=== PATIENT | male | born 1935 | race Caucasian/White ===

== ENCOUNTER 2016-10-04 09:39 | Day surgery (SDC) | payer OTHER ==
--- NOTE | 2016-10-03 15:20 | HP ---
DATE OF ADMISSION: 10/04/2016 BRIEF HISTORY: This is an 81-year-old gentleman who was evaluated by his oncologist, and at that time, noted to have a pigmented nevus overlying the right shoulder. He was then subsequently sent to his account support specialist who did a biopsy, and this confirmed a melanoma that is 0.2 mm in depth. Incidentally, the patient just had a full-body scan by a account support specialist, and this was not picked up. Clearly, his oncologist saved his life. PAST MEDICAL HISTORY: Significant for hypertension, hypercholesterolemia. He had a colon tumor and underwent a colon resection in 2012. He had a hernia repair in 2014. ALLERGIES: SULFA. MEDICATIONS: Avapro, Cardizem, Lipitor, and aspirin. SOCIAL HISTORY: He does not smoke. He drinks socially. PHYSICAL EXAMINATION: HEENT: Unremarkable. Nodes: There is no axillary or cervical adenopathy on the right side. Skin: Patient has a biopsy site noted on the right. This was circled with a red marker today by me. The pointed the area out. Lungs: Clear. Heart: Regular rhythm. 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 This is an 81-year-old gentleman who underwent biopsy of a pigmented nevus overlying the right shoulder. Pathology consistent with malignant melanoma that is 0.2 mm in depth. The patient and I had a long conversation regrading pros and cons of getting a slide review in this setting. Patient wants this surgery done right away, and therefore, we will forego the slide review. In our discussion, we have talked about the fact that the slide review can be exactly the same, and therefore, the surgery will be as planned, but assuming the slide review is off by double, therefore, making this lesion a 0.4 mm malignant melanoma, the operation is still essentially the same. Therefore, the patient clearly does not want to wait for the slide review and wants to proceed with surgery. He understands that if the slide review demonstrates no carcinoma, he is better off and still wants to have this removed at his age. The indications, alternatives, and complications discussed. Questions answered. We will plan to obtain written permission the day of surgery. LIZZETTE RANDOLPH M.D. [id number]
[2016-10-03 15:33] VITALS: BMI 25.5
[2016-10-04] MEDS ORDERED: ceFAZolin SODIUM 1 GM VIAL ONE (10:27)
[2016-10-04 10:43] VITALS: TEMP 97.5
[2016-10-04] MEDS ORDERED: LIDOCAINE HCL 1%, 10 MG/ML (20ML VIAL) ONE (11:23)
[2016-10-04] MEDS ORDERED: PROPOFOL 20 ML ONE (11:42)
[2016-10-04] MEDS ORDERED: MIDAZOLAM HCL 2 MG/2 ML SINGLE DOSE VIAL ONE (11:42)
[2016-10-04] MEDS ORDERED: ceFAZolin SODIUM 1 GM VIAL IVPB ONE (11:50)
[2016-10-04] MEDS ORDERED: LIDOCAINE HCL 1%, 10 MG/ML (50 mL VIAL) IJ ONE ×2 (11:53)
[2016-10-04] MEDS ORDERED: hydrALAZINE HCL 20 MG/ML VIAL ONE (11:53)
[2016-10-04] MEDS ORDERED: ONDANSETRON 4 MG/2 ML VIAL ONE (12:05)
[2016-10-04 13:32] VITALS: BP 123/57; PULSE 61
--- NOTE | 2016-10-05 14:37 | OP ---
DATE OF OPERATION: 10/04/2016 PREOPERATIVE DIAGNOSIS: Melanoma, right shoulder. POSTOPERATIVE DIAGNOSIS: Melanoma, right shoulder. PROCEDURE: Wide excision of melanoma, right shoulder, 8 cm to wound closure. SURGEON: Saman Limon MD WEB OPERATIONS ADMINISTRATOR: None. ANESTHESIA: MAC/1% lidocaine with epinephrine, approximately 10 mL by Krystal Mcginnis MD. ESTIMATED BLOOD LOSS: Minimal. SPECIMEN: Melanoma. REASON FOR PROCEDURE: This is an 81-year-old gentleman with a biopsy-proven melanoma of the right shoulder, at this point 10 mm. Patient is here today for a wide excision. Patient identified and appropriately positioned on operating room table. After placement of IV sedation, the right shoulder prepped and draped in the usual sterile fashion with ChloraPrep. An ellipse was drawn around the preoperatively marked site, oriented longitudinally. There was a minimum of 1-cm margins in all directions. The area was then injected with 1% lidocaine with epinephrine, approximately 10 mL. The skin was then incised along with the deep in the subcutaneous tissue. The specimen was then marked at 12 o'clock single long, 3 o'clock double long, and 3 o'clock being the site closest to the neck. Skin was anterior. The wound irrigated. Operative field examined and noted to be hemostatic. Two flaps were then subsequently created with the cautery. The dermis reapproximated with interrupted inverted 3-0 chromic sutures and the skin closed with an interrupted vertical mattress 3-0 Prolene followed by Dermabond. Length of incision 8 cm. At the conclusion of the case, sponge counts were correct. ATTESTATION: Brief operative note handwritten on the preprinted form. [facility] queried prior to giving any narcotics. Shin PAIGE [id number] cc: Jakub Jensen MD
--- NOTE | 2016-10-05 14:55 | PATH ---
Surgical Pathology Report Patient Name: ERIK IYER [facility]. Rec. #: [id number] /Age/Gender: 1935 (Age: 81) / M Account: [id number] Location: [facility] SURGICAL Taken: 10/04/2016 Received: 10/04/2016 Reported: 10/05/2016 Physicians: Saman Limon Specimen(s) Received RIGHT SHOULDER MELANOMA, SINGLE LONG STITCH IS 12:00, SDOUBLE LONG STITCH IS 3:00 Clinical History Malignant melanoma right shoulder Final Diagnosis SKIN, RIGHT SHOULDER, WIDE EXCISION: SKIN WITH DERMAL FIBROSIS AND NEUTROPHIL INFILTRATE INTO EPIDERMAL TISSUE CONSISTENT WITH PRIOR EXCISION SITE. NO RESIDUAL MELANOMA IDENTIFIED. EXTENSIVE SOLAR ELASTOSIS IS PRESENT. MINUTE (LESS THAN 1 MM) INTRADERMAL NEVUS PRESENT. MARGINS OF EXCISION FREE OF NEVUS. Electronically Signed Ez Rg M.D. Gross Description Received in formalin labeled "right shoulder wide excision," is a 5.7 x 2.8 cm fitch, elliptical portion of skin excised to a depth of 0.9 cm. There is a single long suture marking the 12:00 aspect and a double long suture marking the 3:00 aspect of the specimen, per the surgeon. The epidermal surface displays a 0.6 x 0.5 cm fitch, raised, crusted lesion at 0.7 cm from the closest (6:00) radial margin. The specimen is inked as follows: 12:00 aspect blue; 6:00 aspect green; 3:00 tip red; 9:00 tip yellow; deep black. The specimen is serially sectioned from 3:00 to 9:00. The specimen is entirely and sequentially submitted in 10 cassettes with the bisected 3:00 tip in cassette 1, the bisected 9:00 tip in cassette 10 and the lesion in cassettes 5-6. /10/04/2016 saudi10/04/2016
== END 2016-10-04 14:00 | disposition home or self-care (01) ==
LOC: JASU-SURG 09:39
PROVIDERS: ATTEND Surgery
PROC: 0JBD0ZZ Excision of Right Upper Arm Subcutaneous Tissue and Fascia, Open Approach (ICD-10-PCS; 2016-10-04)
PROC: 0JX Subcutaneous Tissue and Fascia, Transfer (ICD-10-PCS; principal; 2016-10-04 11:00)
DX: C49.11 Malignant neoplasm of connective and soft tissue of right upper limb, including shoulder (principal)
CPT/HCPCS: 88305-TC